=== PATIENT | female | born 1990 | race Hispanic/Latino ===

== ENCOUNTER → 2016-08-18 | Outpatient (CLI) | payer OTHER ==
[~2016-08-18] MED LIST: AMOX250C PO; CODE-54 PO; FERR240T9 PO; Ibuprofen PO; PNV1TABL9 PO
--- NOTE | 2016-08-18 17:38 | Diagnostic Imaging Report ---
INDICATION: Size and dates. OB sonography is performed in the routine fashion with transabdominal views. A single live intrauterine fetus is seen measuring 16 weeks 1 day in size with EDC of 02/01/2017. There is no prior study during this for comparison. Placenta is anterior and somewhat low lying. This may change later in the , suggest follow-up. The tip of the placenta is about 1.4 cm from the internal os at this time. Cervical length is 3.8 cm. heart rate is 153 beats per minute. IMPRESSION: Single live intrauterine measuring 16 weeks 1 day in size. Placenta is anterior and low lying, this may change later in the . Recommend follow-up sonography later in the , for survey as well. Report was faxed to the office of Dr. Helene Benton at 5:52 p.m., by [email or web address] (for STEVE). Dictated by: Dictated on workstation # [id number]
== END ==
LOC: RAD 15:30
PROVIDERS: ATTEND Family Medicine
DX: Z36 Encounter for antenatal screening of mother (principal); Z3A.16 16 weeks gestation of pregnancy
CPT/HCPCS: 76805

== ENCOUNTER → 2016-09-16 | Outpatient (CLI) | payer OTHER ==
--- NOTE | 2016-09-16 16:59 | Diagnostic Imaging Report ---
INDICATION: Survey. TECHNIQUE: Multiple real-time grayscale images were obtained over the gravid uterus. COMPARISON: None FINDINGS: Cervix is nondilated measuring 4.7 cm in length. No pathological finding at the anatomical survey was revealed however positioning limits spinal assessment. The gestation was in variable position. The placenta is fundal with no abruption or previa and there is a normal volume of amniotic fluid. The measurements are compatible with an age 20 weeks 2 days. IMPRESSION: A 20 weeks 2 days hilton viable IUP with no pathological finding revealed. Position limits spinal assessment. Biometrical measurements are as follows: Biparietal 4.73 cm, age 20 weeks 3 days. Head circumference 16.87 cm, age 19 weeks 4 days. Abdominal circumference 15.84 cm, age 21 weeks 0 days. Femur length 3.1 cm, age 19 weeks 5 days. Sonographic estimate age: 20 weeks 2 days. Sonographic estimated date of delivery: 02/01/2017. Estimated Weight: 344 gm (+/- 50 gm). LMP percentile: 46%. heart rate: 126 beats per minute. number: 1 of 1. Dictated by: Dictated on workstation # [id number]
== END ==
LOC: RAD 16:12
PROVIDERS: ATTEND Family Medicine
DX: Z36 Encounter for antenatal screening of mother (principal); Z3A.08 8 weeks gestation of pregnancy
CPT/HCPCS: 76805

== ENCOUNTER → 2016-11-16 | Outpatient (CLI) | payer OTHER | LOC: LAB 07:23 | PROVIDERS: ATTEND Family Medicine | DX: O99.810 Abnormal glucose complicating pregnancy (principal); Z3A.00 Weeks of gestation of pregnancy not specified | CPT/HCPCS: 36415; 82951; 82952; 82962 ==

== ENCOUNTER → 2017-01-13 | Outpatient (CLI) | payer OTHER ==
--- NOTE | 2017-01-13 17:08 | Diagnostic Imaging Report ---
INDICATION: Assess growth. TECHNIQUE: Multiple real-time grayscale images were obtained over the gravid uterus. COMPARISON: Exam compared to 09/16/2016. FINDINGS: A hilton gestation is in cephalic position. The placenta is anterior with no abruption or previa. The amniotic fluid index is 10.2. The largest vertical pocket measuring 3.9 cm. There is no abruption or previa. The measurements today correlate with an average age of 38 weeks 5 days. Age based upon initial ultrasound would be 37 weeks 2 days. IMPRESSION: Cephalic-positioning hliton viable IUP measures 38 weeks 5 days today, initial ultrasound age is 37 weeks 2 days. Normal ILIANA. No abruption or previa. Biometrical measurements are as follows: Biparietal 9.47 cm, age 38 weeks 5 days. Head circumference 34.11 cm, age 39 weeks 2 days. Abdominal circumference 35.75 cm, age 39 weeks 5 days. Femur length 7.18 cm, age 36 weeks 6 days. Sonographic estimate age: 38 weeks 5 days. Sonographic estimated date of delivery: 01/22/2017. Estimated Weight: 3620 gm (+/- 529 gm). LMP percentile: 91%. heart rate: 123 beats per minute. number: 1 of 1. Dictated by: Dictated on workstation # [id number]
== END ==
LOC: RAD 15:51
PROVIDERS: ATTEND Family Medicine
DX: O24.410 Gestational diabetes mellitus in pregnancy, diet controlled (principal); Z3A.37 37 weeks gestation of pregnancy
CPT/HCPCS: 76816

== ENCOUNTER 2017-01-24 19:00 | Inpatient (IN) | payer OTHER ==
[~2017-01-24] VITALS: Ht 149.9 cm; Wt 70.3 kg
[2017-01-24 19:35] VITALS: BP 109/55
[2017-01-24] MEDS: LACTATED RINGERS 1,000 ML IV SCH (20:00)
[2017-01-24 20:09] LABS: BASOPHILS % (AUTO) 0 % (0-10); EOSINOPHILS # (AUTO) 0.1 10^3/uL (0.0-0.3); EOSINOPHILS % (AUTO) 1 % (0-10); LYMPHOCYTES % (AUTO) 20 % (12-44); MEAN CORPUSCULAR HEMOGLOBIN 29 PG (25-34); MEAN CORPUSCULAR HGB CONC 34 G/DL (32-36); MEAN CORPUSCULAR VOLUME 86 FL (80-99); MEAN PLATELET VOLUME 9.6 FL (7.4-10.4); MONOCYTES # (AUTO) 1.3 X 10^3 (0.0-1.0); MONOCYTES % (AUTO) 14 % (0-12); NEUTROPHILS # (AUTO) 6.3 X 10^3 (1.8-7.8); NEUTROPHILS % (AUTO) 65 % (42-75); PLATELET COUNT 291 10^3/uL (130-400); RED BLOOD COUNT 3.98 10^6/uL (4.35-5.85); RED CELL DISTRIBUTION WIDTH 14.2 % (10.0-14.5); WHITE BLOOD COUNT 9.7 10^3/uL (4.3-11.0)
[2017-01-24] MEDS ORDERED: LACTATED RINGERS 1,000 ML IV SCH (20:27)
[2017-01-24] MEDS: MISOPROSTOL 100 MCG (CYTOTEC) TAB PV SCH (21:46)
[2017-01-24] MEDS ORDERED: CATHETER FLUSH 10 ML SYR IV SCH (22:00)
[2017-01-25] VITALS (51 sets, daily range): BP systolic 89–136; BP diastolic 49–66
[2017-01-25] MEDS: MISOPROSTOL 100 MCG (CYTOTEC) TAB PV SCH (02:20)
[2017-01-25] MEDS ORDERED: fentaNYL INJECTION 100 MCG/2 ML AMP IVP PRN (02:30)
[2017-01-25] MEDS: LACTATED RINGERS 1,000 ML IV SCH ×2 (02:34→08:52)
[2017-01-25] MEDS ORDERED: OXYTOCIN/NORMAL SALINE 500 ML IV SCH ×2 (04:12→12:35)
[2017-01-25] MEDS ORDERED: INFLUENZA TRIvalent 2017-2018 0.5 ML/45 MCG SYR IM ONE (07:00)
[2017-01-25] MEDS ORDERED: SUFENTA 0.6MCG/ML BUPIVA 0.125 100 ML ONE ×2 (08:03→17:00)
--- NOTE | 2017-01-25 08:10 | History & Physical-OB ---
OB - Chief Complaint & HPI Date/Time Date of Admission: Date of Admission: Jan 24, 2017 at 7:01 pm Time Seen by Provider: 07:55 Chief Complaint/History OB-Reason for Admission/Chief: Induction of Labor Hx : 3 Hx Para: 2001 Expected Date of Delivery: Feb 01, 2017 Gestational Age in Weeks: 39 Gestational Age in Days: 0 Indication for induction: medical complication (gestational diabetes, diet- controlled) History of Labs O+, antibody neg, Rubella immune. HIV/HepB/RPR NR. GC/chlamydia neg. GBS neg. Allergies and Home Medications Allergies Coded Allergies: No Known Drug Allergies (Unverified , 09/26/13) Home Medications Pnv Cmb#21/Iron/Folic Acid 1 Each Tablet, 1 EACH PO, (Reported) OB - History Hx of Present Care: Yes Ultrasounds: Normal mid trimester US (initial US with low lying placenta, resolved at follow-up, EFW 3620 at 37 weeks) Obstetrical Complications: Gestational Diabetes Information Induced Hypertension: No Maternal Gestational Diabetes: Yes Hemorrhage: No Obstetrical History Hx : 3 Hx Para: 2 Hx # Term Pregnancies: 2 Hx # Pregnancies: 0 Number of Living Children: 2 Hx Termination: No Hx Multiple Gestation: No Hx Ectopic : No Hx Stillbirth: No Hx Complication: No Hx Induced Hypertens: No Hx Maternal Gestational Diabet: No Hx Hemorrhage: No Delivery History Hx Dystocia: No Hx Forceps Assisted Delivery: No Hx Vacuum Extraction Assisted: No Hx Placenta Abnormality: No Hx Distress: No Hx Large For Gestational Age I: No Hx Small for Gestational Age I: No Hx Section: No Hx Vaginal Delivery Post C-Sec: No Hx Blood Disorders: No Adverse Rxn to Tranfusion: No Patient Past Medical History PMHx: Denies Social History/Family History HIV/AIDS: No Recent Infectious Disease Expo: No Sexually Transmitted Disease: No Alcohol Use: Denies Use Recreational Drug Use: No Smoking Cessation: Never smoker Immunizations Tetanus Booster (TDap): Less than 5yrs (12/14/2016) Rubella: immune RPR/VDRL: Negative GBS Status: Negative HBsAG: Negative OB - Admission Exam Physical Exam Vitals: Vital Signs 01/25/17 01/25/17 04:05 07:00 Temp 97.9 Pulse 81 Resp 18 B/P (MAP) 113/59 (77) O2 Delivery Room Air HEENT: NCAT Cervical Dilatation: 5cm Effacement: 50% Station: -3 Membranes: Ruptured (AROM at 0800) Amniotic Fluid: Clear Heart Rate: 130's Accelerations: Accelerations Present Short Term Variability: Present Wardrobe Technician Variability: Average (6-25) Contractions on Admission: 6-10 Minutes Apart Intensity: Mild Desouza Scoring Tool (Modified) Dilation (cm): 1-2cm (1) Effacement (%): 0-30% (0) Descent/Station: -3 (0) Cervix Consistency: Soft (2) Cervix Position: Posterior (0) Add 1 point for: Each previous vaginal delivery (1) (2) Desouza Score: 5 Labs Laboratory Tests Test 01/24/17 20:00 01/24/17 20:11 Range/Units White Blood Count 9.7 4.3-11.0 10^3/uL Red Blood Count 3.98 L 4.35-5.85 10^6/uL Hemoglobin 11.5 11.5-16.0 G/DL Hematocrit 34 L 35-52 % Mean Corpuscular Volume 86 80-99 FL Mean Corpuscular Hemoglobin 29 25-34 PG Mean Corpuscular Hemoglobin Concent 34 32-36 G/DL Red Cell Distribution Width 14.2 10.0-14.5 % Platelet Count 291 130-400 10^3/uL Mean Platelet Volume 9.6 7.4-10.4 FL Neutrophils (%) (Auto) 65 42-75 % Lymphocytes (%) (Auto) 20 12-44 % Monocytes (%) (Auto) 14 H 0-12 % Eosinophils (%) (Auto) 1 0-10 % Basophils (%) (Auto) 0 0-10 % Neutrophils # (Auto) 6.3 1.8-7.8 X 10^3 Lymphocytes # (Auto) 2.0 1.0-4.0 X 10^3 Monocytes # (Auto) 1.3 H 0.0-1.0 X 10^3 Eosinophils # (Auto) 0.1 0.0-0.3 10^3/uL Basophils # (Auto) 0.0 0.0-0.1 10^3/uL Glucometer 87 70-110 MG/DL OB - Assessment/Plan/Diagnosis Assessment Assessment: induction of labor, other (GDMA1) Plan Plan: Induction Induction Method: per Misoprostol Protocol (Desouza 5 on admit, one dose of cytotec given, started pitocin and AROM this am) Other Plan Blood sugar 87 on admit Copy Copies To 1: NAV VOSS MD, BETHANY N MD Jan 25, 2017 8:10 am
[2017-01-25] MEDS ORDERED: BUPIVACAINE 0.25% 30 ML (SENSORCAINE) VIAL ONE (09:18)
[2017-01-25] MEDS ORDERED: fentaNYL INJECTION 100 MCG/2 ML AMP ONE (09:18)
[2017-01-25] MEDS ORDERED: MINERAL OIL CONCENTRATE 99.9% 15 ML UDC ONE (11:58)
[2017-01-25] MEDS ORDERED: LIDOCAINE/EPI 2% 1:200,00 (XYLOCAINE) 10 ML VIAL ONE (11:58)
[2017-01-25] MEDS ORDERED: MISOPROSTOL 200 MCG (CYTOTEC) TABLET ONE (12:16)
--- NOTE | 2017-01-25 12:28 | OB Labor & Delivery Record ---
Vag Delivery Note Vag Delivery Note Date of Delivery: 01/25/17 Preoperative Diagnosis: Hanane Mejia is a 26 /Para 3 / 2, Gestational Age (wks)39with 0d Postoperative Diagnosis: Same Surgeon: NAV VOSS Anesthesia: epidural Delivery Type: spontaneous vaginal Findings: [] Viable female infant, apgars 9/9, weight pending Lacerations: first degree perineal Intact placenta with 3 vessel cord. No nuchal cord, body cord or shoulder dystocia Cytotec 800 mcg placed for hemorrhage prophylaxis Estimated Blood Loss: 350 ml Complications: None Condition: Stable Description of Procedure: The patient is a G3 now P3 who presented for IOL at 39 weeks due to GDMA1. She was admitted and informed consent was obtained. Her labor course was unremarkable. She progressed to complete dilatation and began to push. She was then set up for delivery. The 's head was delivered atraumatically in the TAYLER position. The shoulders and remainder of the infant's body were then delivered without difficulty. Upon delivery, the head was held below the level of the perineum and the mouth and nares were bulb suctioned. The cord was doubly clamped and cut and the was handed off to the pediatric staff. An intact placenta with 3-vessel cord delivered via Laxmi and there was found to be minimal bleeding.~ Vigorous fundal massage was performed and the fundus was found to be firm. IV oxytocin was given. Examination of the vagina and perineum revealed a first degree perineal laceration repaired in the usual fashion with 3-0 rapide suture. Following the repair, sponge, instrument and needle counts were correct. Mom and baby were both in stable condition in the labor suite. Vitals - Labs Vital Signs - I&O Vital Signs 01/25/17 01/25/17 09:33 10:57 Temp 99.2 Pulse 80 Resp 18 B/P (MAP) 107/57 (74) Pulse Ox 96 O2 Delivery Room Air Labs Laboratory Tests 01/24/17 20:00: White Blood Count 9.7, Red Blood Count 3.98L, Hemoglobin 11.5, Hematocrit 34L, Mean Corpuscular Volume 86, Mean Corpuscular Hemoglobin 29, Mean Corpuscular Hemoglobin Concent 34, Red Cell Distribution Width 14.2, Platelet Count 291, Mean Platelet Volume 9.6, Neutrophils (%) (Auto) 65, Lymphocytes (%) (Auto) 20, Monocytes (%) (Auto) 14H, Eosinophils (%) (Auto) 1, Basophils (%) (Auto) 0, Neutrophils # (Auto) 6.3, Lymphocytes # (Auto) 2.0, Monocytes # (Auto) 1.3H, Eosinophils # (Auto) 0.1, Basophils # (Auto) 0.0 01/24/17 20:11: Glucometer 87 NAV VOSS MD Jan 25, 2017 12:28 pm
[2017-01-25] MEDS ORDERED: MISOPROSTOL 200 MCG (CYTOTEC) TABLET PR ONE (12:30)
[2017-01-25] MEDS ORDERED: MEASLES,MUMPS,RUBELLA 1 EA INJ SQ ONE (12:45)
[2017-01-25] MEDS ORDERED: BENZOCAINE/MENTHOL (DERMOPLAST) 56 ML CAN TP PRN (12:45)
[2017-01-25] MEDS ORDERED: TETANUS,DIPTH,PERTUSS P/F (BOOSTRIX) 0.5 ML VIAL IM ONE (12:45)
[2017-01-25] MEDS ORDERED: WITCH HAZEL(TUCKS) 40 EA JAR TOP PRN (12:45)
[2017-01-25] MEDS ORDERED: LACTATED RINGERS 1,000 ML IV ONE ×2 (13:54)
[2017-01-25] MEDS ORDERED: ONDANSETRON 4 MG/2 ML (SDV) Z0FRAN IV PRN (14:00)
[2017-01-25] MEDS ORDERED: CATHETER FLUSH 10 ML SYR IV SCH (14:00)
[2017-01-25] MEDS ORDERED: NALOXONE 0.4 MG/ML 1 ML (NARCAN) VIAL IV PRN (14:00)
[2017-01-25] MEDS ORDERED: EPIDURAL (SUFENTA 0.6MCG/ML BUPIVA 0.125%) 100 ML BAG EPI PRN (14:00)
[2017-01-25] MEDS: IBUPROFEN 600 MG (MOTRIN) TAB PO SCH ×2 (16:00→22:08)
[2017-01-26 04:33] VITALS: BP 94/51
[2017-01-26] MEDS: IBUPROFEN 600 MG (MOTRIN) TAB PO SCH ×2 (04:33→09:34)
[2017-01-26 06:20] LABS: BASOPHILS % (AUTO) 0 % (0-10); EOSINOPHILS # (AUTO) 0.1 10^3/uL (0.0-0.3); EOSINOPHILS % (AUTO) 1 % (0-10); LYMPHOCYTES # (AUTO) 2.5 X 10^3 (1.0-4.0); LYMPHOCYTES % (AUTO) 22 % (12-44); MEAN CORPUSCULAR HEMOGLOBIN 30 PG (25-34); MEAN CORPUSCULAR HGB CONC 34 G/DL (32-36); MEAN CORPUSCULAR VOLUME 87 FL (80-99); MEAN PLATELET VOLUME 9.4 FL (7.4-10.4); MONOCYTES # (AUTO) 1.4 X 10^3 (0.0-1.0); MONOCYTES % (AUTO) 12 % (0-12); NEUTROPHILS # (AUTO) 7.5 X 10^3 (1.8-7.8); NEUTROPHILS % (AUTO) 65 % (42-75); PLATELET COUNT 237 10^3/uL (130-400); RED CELL DISTRIBUTION WIDTH 14.3 % (10.0-14.5); WHITE BLOOD COUNT 11.5 10^3/uL (4.3-11.0)
[2017-01-26] MEDS ORDERED: PRENATAL VITAMIN 1 EA TAB PO SCH (07:00)
[2017-01-26 09:30] VITALS: BP 101/62
--- NOTE | 2017-01-26 11:26 | Postpartum Progress Note ---
Note Note Day # 1 Subjective: Patient is without complaints. Ambulating, voiding. Tolerating a regular diet without nausea or vomiting. Normal lochia. Pain is well controlled and patient has not taken any oral pain medications at this time. . Patient would like to be discharged later today as long as infant is able to be discharged today. Objective: Physical Exam: General - Alert and oriented, no apparent distress Abdomen - Soft, appropriately tender to palpation, non-distended, fundus firm and post gravid uterus Extremities - no edema, negative Bennie's bilaterally Cardiovascular - Heart RRR without murmurs/rubs/gallops Lungs - CTAB, no cough/wheeze/rhonchi Assessment: post- day #1, status post spontaneous vaginal delivery. Recovering well, hemodynamically stable Acute blood loss anemia Plan: Routine care. Encourage breast feeding. Encourage ambulation. Ferrous sulfate supplementation. Plan for discharge later today if is able to be discharged home. Vitals - Labs Vital Signs - I&O Vital Signs Date Time Temp Pulse Resp B/P (MAP) Pulse Ox O2 Delivery O2 Flow Rate FiO2 01/26/17 09:30 98.1 103 16 101/62 (75) Room Air 01/26/17 04:33 96.9 75 18 94/51 (65) 98 Room Air 01/25/17 20:00 98.8 78 18 109/66 (80) 98 Room Air 01/25/17 16:00 100.0 83 18 103/56 (72) Room Air 01/25/17 13:56 74 18 104/55 (71) Room Air 01/25/17 13:41 75 18 98/52 (67) Room Air 01/25/17 13:26 81 18 103/52 (69) Room Air 01/25/17 13:11 78 18 118/55 (76) Room Air 01/25/17 12:56 78 18 115/55 (75) Room Air 01/25/17 12:41 86 18 111/55 (73) Room Air 01/25/17 12:27 100 18 117/58 (77) Room Air 01/25/17 12:15 99 18 115/56 (75) Room Air 01/25/17 12:00 88 18 117/64 (81) 95 Room Air 01/25/17 11:30 77 18 113/54 (73) 94 Room Air I & O 12/20/17 07:00 Intake Total 3000 ml Balance 3000 ml Labs Laboratory Tests 01/26/17 06:05: White Blood Count 11.5H, Red Blood Count 3.70L, Hemoglobin 10.9L, Hematocrit 32L , Mean Corpuscular Volume 87, Mean Corpuscular Hemoglobin 30, Mean Corpuscular Hemoglobin Concent 34, Red Cell Distribution Width 14.3, Platelet Count 237, Mean Platelet Volume 9.4, Neutrophils (%) (Auto) 65, Lymphocytes (%) (Auto) 22, Monocytes (%) (Auto) 12, Eosinophils (%) (Auto) 1, Basophils (%) (Auto) 0, Neutrophils # (Auto) 7.5, Lymphocytes # (Auto) 2.5, Monocytes # (Auto) 1.4H, Eosinophils # (Auto) 0.1, Basophils # (Auto) 0.0, Glucose Level 68L MARIO ISRAEL DO Jan 26, 2017 11:26
--- NOTE | 2017-01-26 12:36 | Discharge Summary ---
Diagnosis/Chief Complaint Date of Admission Jan 24, 2017 at 19:01 Date of Discharge 01/25/17 Admission Diagnosis Admission Diagnosis Term A1GDM Discharge Diagnosis Term - Delivered Spontaneous Vaginal Delivery First Degree Perineal Laceration Mother State Blood Loss Anemia/Physiologic Anemia of Chief Complaint/HPI Chief Complaint/HPI 26 year old G3 now P3003 admitted 01/24/17 for induction of labor of term complicated by A1GDM. Patient progressed well with her induction and delivered a viable female weighing 3685 grams over a first degree perineal laceration that was repaired in the normal fashion. She has had an uncomplicated course, and today expresses desire for early discharge later today, after the baby is > 24 hours old, and the PKU and bili levels on the have been collected. She has not required anything for pain, and reports that she is ambulating without difficulty, not having significant pain, and would be more comfortable at home. Discharge Summary-Simple/Stand Procedures Induction of Labor Repair of First Degree Perineal Laceration Spontaneous Vaginal Delivery Discharge Physical Examination Allergies: Coded Allergies: No Known Drug Allergies (Unverified , 09/26/13) Vitals & I&Os Vital Sign - Last 12Hours Date Time Temp Pulse Resp B/P (MAP) Pulse Ox O2 Delivery O2 Flow Rate FiO2 01/26/17 09:30 98.1 103 16 101/62 (75) Room Air 01/26/17 04:33 98 Intake and Output 01/26/17 00:00 Intake Total 1000 ml Balance 1000 ml General Appearance: Alert, Oriented X3, Cooperative, No Acute Distress HEENT: Atraumatic, PERRLA, EOMI, Mucous Memb Moist/[place] Respiratory: Clear to Auscultation, Normal Air Movement Cardiovascular: Regular Rate, Normal S1, Normal S2, No Murmurs Abdominal: Normal Bowel Sounds, Soft, No Tenderness, No Hepatosplenomegaly Extremities: No Clubbing, No Cyanosis, Normal Pulses, No Tenderness/Swelling Skin: No Rashes, No Significant Lesion Neuro: Normal Gait, Normal Speech, Strength at 5/5 X4 Ext, Normal Tone, Sensation Intact, Cranial Nerves 3-12 NL Psych/Mental Status: Mental Status NL, Mood NL Hospital Course See final discharge diagnosis. Labs Laboratory Tests Test 01/24/17 20:00 01/24/17 20:11 01/26/17 06:05 Range/Units White Blood Count 9.7 11.5 H 4.3-11.0 10^3/uL Red Blood Count 3.98 L 3.70 L 4.35-5.85 10^6/uL Hemoglobin 11.5 10.9 L 11.5-16.0 G/DL Hematocrit 34 L 32 L 35-52 % Mean Corpuscular Volume 86 87 80-99 FL Mean Corpuscular Hemoglobin 29 30 25-34 PG Mean Corpuscular Hemoglobin Concent 34 34 32-36 G/DL Red Cell Distribution Width 14.2 14.3 10.0-14.5 % Platelet Count 291 237 130-400 10^3/uL Mean Platelet Volume 9.6 9.4 7.4-10.4 FL Neutrophils (%) (Auto) 65 65 42-75 % Lymphocytes (%) (Auto) 20 22 12-44 % Monocytes (%) (Auto) 14 H 12 0-12 % Eosinophils (%) (Auto) 1 1 0-10 % Basophils (%) (Auto) 0 0 0-10 % Neutrophils # (Auto) 6.3 7.5 1.8-7.8 X 10^3 Lymphocytes # (Auto) 2.0 2.5 1.0-4.0 X 10^3 Monocytes # (Auto) 1.3 H 1.4 H 0.0-1.0 X 10^3 Eosinophils # (Auto) 0.1 0.1 0.0-0.3 10^3/uL Basophils # (Auto) 0.0 0.0 0.0-0.1 10^3/uL Glucometer 87 70-110 MG/DL Glucose Level 68 L 70-105 MG/DL Discussion & Recommendations Given that patient is stable, there is no reason that she can't be discharged to home later today. Plan for routine follow up with Dr. Benton in the office for routine care. Discharge Condition at discharge Stable Instructions to patient/family Please see electronic discharge instructions given to patient. Discharge Medications Reviewed and agree with Discharge Medication list on patient's Discharge Instruction sheet Clinical Quality Measures DVT/VTE Risk/Contraindication: Risk Factor Score Per Nursin RFS Level Per Nursing on Admit: 1=Low/No VTE PPX MARIO ISRAEL DO Jan 26, 2017 12:36
[2017-01-26] MEDS ORDERED: IBUP-1773 PO (12:40)
--- NOTE | 2017-01-26 12:45 | Discharge Instructions ---
Discharge Inst-Women's Serv Depart Medications New, Converted or Re-Newed RX: Transmitted to Pharmacy Final Diagnosis Spontaneous Vaginal Delivery Mother New Medications: Ibuprofen (Ibuprofen) 600 Mg Tablet 600 MG PO Q6H PRN for pain or cramping for 14 Days, #45 TAB 0 Refills Continued Medications: Pnv Cmb#21/Iron/Folic Acid ( Complete [place]) 1 Each Tablet 1 EACH PO, TAB Follow Up/Instructions Goal/Follow Up: Routine follow up with Dr. Benton in 6 weeks Activity Activity: Activity as Tolerated Driving Instructions: You May Drive NO SMOKING: NO SMOKING Nothing Inside Vagina: No Douching, No [place], No Tampons Diet Discharge Diet: No Restrictions Return to The Hospital For: Temp >101, foul discharge or odor, heavy vaginal bleeding that saturates more than 1 pad per hour for two hours in a row, clots larger than the size of an orange, severe pain that is uncontrolled by medications, nausea or vomiting that makes you unable to keep down medication, severe shortness of breath or chest pressure, headache/visual changes or epigastric pain unrelieved by medications, or if directed to return to hospital by metal bonder provider Symptoms to Report to : Bleeding Excessive, Eyesight Changes, Fever Over 101 Degrees F, Pain/Pressure in Chest, Heart Beat Irreg/Pounding, Pain/Pressure in Jaw, Vaginal Bleeding Increase, Lightheadedness, Pain/Pressure in Shoulder, Vaginal Discharge Foul, Memory Changes Suddenly, Questions/Concerns, Dizziness/ Fainting, Nausea/Vomiting, Shortness of Breath For Any Problems or Questions: Contact Your Physician Copies To 1: NAV BENTON MD, MARGARET E DO Jan 26, 2017 12:45
--- NOTE | 2017-01-26 14:23 | Anesthesia-Regional Post-Op ---
Regional Patient Condition Mental Status: Alert, Oriented x3 Circulation: Same as Pre-Op Headache: Absent Sensation: Full Recovery Motor Block: Absent Post Op Complications Complications None Follow Up Care/Instructions Patient Instructions None needed. Anesthesia/Patient Condition Patient is doing well, no complaints, stable vital signs, no apparent adverse anesthesia problems. No complications reported per nursing. KATE MADRID CRNA Jan 26, 2017 14:23
[2017-01-26 15:55] VITALS: BP 100/58
== END 2017-01-26 17:07 | disposition home or self-care (01) | DRG 775 ==
LOC: LDRP 19:01
PROVIDERS: ADMIT Family Medicine; ATTEND Family Medicine
PROC: 10E0XZZ Delivery of Products of Conception, External Approach (ICD-10-PCS; principal; 2017-01-25)
PROC: 0HQ9XZZ Repair Perineum Skin, External Approach (ICD-10-PCS; 2017-01-25)
DX: O24.410 Gestational diabetes mellitus in pregnancy, diet controlled (principal); O70.0 First degree perineal laceration during delivery; O99.03 Anemia complicating the puerperium; D64.9 Anemia, unspecified; Z3A.39 39 weeks gestation of pregnancy; Z37.0 Single live birth
CPT/HCPCS: 36415; 82947; 82962; 85025; 86850; 86900; 86901

== ENCOUNTER 2019-06-27 06:36 | Emergency (ER) | payer BC, MEDICAID, OTHER ==
[~2019-06-27] VITALS: Ht 152 cm; Wt 64.0 kg
[~2019-06-27 06:36] MED LIST changes: +IBUP-1773 PO
--- NOTE | 2019-06-27 08:22 | Diagnostic Imaging Report ---
HISTORY: Right ankle pain after twisting injury this morning. COMPARISON: None TECHNIQUE: 3 views of the right ankle FINDINGS: No acute fracture or dislocation is seen in the right ankle. Alignment appears normal. Joint spaces are preserved. The ankle mortise is symmetric and the talar dome is intact. There is moderate lateral soft tissue swelling. IMPRESSION: 1. No acute osseous abnormality is seen in the right ankle. There is moderate lateral soft tissue swelling. Dictated by: Dictated on workstation # [id number]
--- NOTE | 2019-06-27 08:34 | ED Lower Extremity ---
General Chief Complaint: Lower Extremity Stated Complaint: RT ANKLE INJURY Nursing Triage Note: PT TO ROOM 6 PER W/C STATES TWISTED R ANKLE GOING DOWN STEP FELT POP, HAS PAIN AND SWELLING AT SITE. DENIES ANY OTHER INJURIES. ICE APPLIED TO AREA Nursing Sepsis Screen: No Definite Risk Source: patient Exam Limitations: no limitations History of Present Illness Date Seen by Provider: June 27, 2019 Time Seen by Provider: 07:24 Initial Comments This 28-year-old woman presents to the emergency room with pain and swelling to the right lateral malleolus after rolling her ankle on stairs this morning. She has taken no pain medications. She is not able to bear weight well. Allergies and Home Medications Allergies Coded Allergies: No Known Drug Allergies (Unverified , 09/26/13) Home Medications No Active Prescriptions or Reported Meds Patient Home Medication List Home Medication List Reviewed: Yes Review of Systems Constitutional: no symptoms reported EENTM: no symptoms reported Respiratory: no symptoms reported Cardiovascular: no symptoms reported Gastrointestinal: no symptoms reported Genitourinary: no symptoms reported : No Musculoskeletal: see HPI Skin: no symptoms reported Psychiatric/Neurological: No Symptoms Reported Past Aklbpre-Focuzz-Swgaku Hx Patient Social History Alcohol Use: Denies Use Recreational Drug Use: No Smoking Status: Never a Smoker Recent Foreign Travel: No Contact w/Someone Who Travel: No Recent Infectious Disease Expo: No Recent Hopitalizations: No Physical Abuse: No Sexual Abuse: No Immunizations Up To Date Tetanus Booster (TDap): Less than 5yrs Seasonal Allergies Seasonal Allergies: No Past Medical History Surgeries: No Respiratory: No Cardiac: No Neurological: No : No Last Menstrual Period: May 14, 2019 Reproductive Disorders: No Sexually Transmitted Disease: No HIV/AIDS: No Genitourinary: No Gastrointestinal: No Musculoskeletal: No Endocrine: No HEENT: No Cancer: No Psychosocial: No Integumentary: No Blood Disorders: No Adverse Reaction/Blood Tranf: No Family Medical History Patient reports no known family medical history. Physical Exam Vital Signs Vital Signs - First Documented 06/27/19 07:15 Temp 36.1 Pulse 103 Resp 20 B/P (MAP) 112/86 (95) Pulse Ox 100 Capillary Refill : Less Than 3 Seconds Height, Weight, BMI Height: 4'11.00" Weight: 155lbs. 0.0oz. [id number]; 27.00 BMI Method: General Appearance: WD/WN, no apparent distress HEENT: normal ENT inspection Neck: normal inspection Cardiovascular: regular rate, rhythm, no edema, no murmur Respiratory: lungs clear, normal breath sounds, no respiratory distress Ankles: right ankle bone tenderness, right ankle ecchymosis, right ankle limited range of motion, right ankle swelling Feet: right foot non-tender, right foot normal inspection, right foot normal range of motion, right foot no evidence of injury Neurologic/Tendon: normal sensation, normal motor functions, normal tendon functions Neurologic/Psychiatric: diagrammer II-XII nml as tested, no motor/sensory deficits, alert, normal mood/affect, oriented x 3 Skin: warm/dry, ecchymosis Progress/Results/Core Measures Results/Orders My Orders Orders - GIO DIAMOND MD Ankle, Right, 3 Views (06/27/19 07:24) Crutches (06/27/19 08:35) Vital Signs/I&O 06/27/19 06/27/19 07:15 08:48 Temp 36.1 36.1 Pulse 103 103 Resp 20 20 B/P (MAP) 112/86 (95) 112/86 (95) Pulse Ox 100 100 Blood Pressure Mean: 95 Progress Progress Note : Progress Note X-rays were negative for fracture. Patient was fitted with Huber bandage and crutches. Diagnostic Imaging Diagonstic Imaging: Xray Plain Films/CT/US/NM/MRI: chest Comments Chest x-ray viewed by me and report reviewed. See report below: NAME: JANICE ROACH [facility] REC#: [id number] PT STATUS: REG ER : 1990 PHYSICIAN: GIO DIAMOND MD ADMIT DATE: 06/27/19/ER Draft Date of Exam:06/27/19 ANKLE, RIGHT, 3 VIEWS HISTORY: Right ankle pain after twisting injury this morning. COMPARISON: None TECHNIQUE: 3 views of the right ankle FINDINGS: No acute fracture or dislocation is seen in the right ankle. Alignment appears normal. Joint spaces are preserved. The ankle mortise is symmetric and the talar dome is intact. There is moderate lateral soft tissue swelling. IMPRESSION: 1. No acute osseous abnormality is seen in the right ankle. There is moderate lateral soft tissue swelling. Dictated on workstation # [id number] Dict: 06/27/19 0817 Trans: 06/27/19 0821 [facility] [id number] Interpreted by: JUNIOR DONIS MD Departure Impression Primary Impression: Right ankle sprain Qualified Codes: S93.401A - Sprain of unspecified ligament of right ankle, initial encounter Disposition: 01 HOME, SELF-CARE Condition: Stable Departure-Patient Inst. Decision time for Depature: 08:34 Referrals: NAV VOSS MD (PCP/Family) Primary Care Physician Patient Instructions: Ankle Sprain, How to Use Crutches Add. Discharge Instructions: For pain you may take ibuprofen up to 600 mg every 6 hours as needed and Tylenol (acetaminophen) up to 1000 mg every 6 hours as needed. Elevation and 20 minute intervals of icing should be helpful in reducing pain and swelling. Compressive wrapping with an Huber bandage may also reduce swelling and increased support. Use crutches as needed and gradually advance level of activity as pain allows. Wear an ankle brace whenever active for the next 6 weeks. Contact your doctor or return to care if you have any further problems or concerns. All discharge instructions reviewed with patient and/or family. Voiced understanding. Scripts No Active Prescriptions or Reported Meds Work/School Note: Work Release Form Date Seen in the Emergency Department: June 27, 2019 Return to Work: June 28, 2019 Other Restrictions Listed Below: May need to use crutches and intermittently elevate right foot for 6 weeks. Restrictions: Wear ankle brace at work for 6 weeks. GIO DIAMOND MD June 27, 2019 08:34
[2019-06-27 08:48] VITALS: BP 112/86
== END 2019-06-27 08:53 | disposition home or self-care (01) ==
LOC: EDUNIT# 06:36 → ER 06:39
DX: S93.401A Sprain of unspecified ligament of right ankle, initial encounter (principal); X50.1XXA Overexertion from prolonged static or awkward postures, initial encounter
CPT/HCPCS: 73610

== ENCOUNTER 2022-05-18 06:05 | Inpatient (IN) | payer BC, MEDICAID ==
[2022-05-18] VITALS (70 sets, daily range): BP systolic 91–122; BP diastolic 50–63
[~2022-05-18] VITALS: Ht 149.9 cm; Wt 75.3 kg
[2022-05-18] MEDS ORDERED: MINERAL OIL 30 ML UDC TOP PRN (06:45)
[2022-05-18] MEDS ORDERED: LACTATED RINGERS 1,000 ML IV SCH ×2 (06:45→12:45)
[2022-05-18] MEDS ORDERED: OXYTOCIN PRE-MIX DRIP 500 ML IV SCH ×2 (06:45→20:45)
[2022-05-18] MEDS ORDERED: AMPICILLIN FOR IV USE 2,000 MG in NS (IVPB) 50 ML IV SCH ×2 (06:45→13:05)
[2022-05-18 06:47] LABS: BASOPHILS % (AUTO) 0 % (0-10); EOSINOPHILS # (AUTO) 0.1 10^3/uL (0.0-0.3); EOSINOPHILS % (AUTO) 1 % (0-10); HEMATOCRIT 38 % (35-52); HEMOGLOBIN 12.9 g/dL (11.5-16.0); LYMPHOCYTES # (AUTO) 1.9 10^3/uL (1.0-4.0); LYMPHOCYTES % (AUTO) 24 % (12-44); MEAN CORPUSCULAR HEMOGLOBIN 30 pg (25-34); MEAN CORPUSCULAR HGB CONC 34 g/dL (32-36); MEAN CORPUSCULAR VOLUME 90 fL (80-99); MEAN PLATELET VOLUME 9.5 fL (9.0-12.2); MONOCYTES # (AUTO) 0.9 10^3/uL (0.0-1.0); MONOCYTES % (AUTO) 12 % (0-12); NEUTROPHILS # (AUTO) 4.8 10^3/uL (1.8-7.8); NEUTROPHILS % (AUTO) 62 % (42-75); PLATELET COUNT 266 10^3/uL (130-400); WHITE BLOOD COUNT 7.8 10^3/uL (4.3-11.0)
--- NOTE | 2022-05-18 07:22 | History & Physical-OB/GYN ---
DANA HERNANDEZ 05/18/22 0722: OB - Chief Complaint & HPI Date/Time Date of Admission: Date of Admission: May 18, 2022 at 06:05 Date seen by a Provider: May 18, 2022 Time Seen by a Provider: 08:00 Chief Complaint/History OB-Reason for Admission/Chief: Induction of Labor Hx : 4 Hx Para: 3 Expected Date of Delivery: May 27, 2022 Gestational Age in Weeks: 38 Gestational Age in Days: 5 Indication for induction: medical complication (GDMA2) History of Labs O+, Ab neg GBS + RI HepB sAg NR Hep C NR RPR NR Trichomonas neg BV neg Other Patient is a 31 year old who presents for IOL due to GDMA2. Patient is GBS+. Patient has received routine care and denies any complications throughout her other than GDM. Patient was taking metformin 1000mg BID PO for management along with dietary modifications. On the patient's last BPP on 05/10, mild bilateral renal pelviectasis was noted. On 05/10 the patient's SVE was 1/0/-3 with a Desouza score of 6. SVE to be conducted this morning to determine whether or not cervical rippening is advised. Patient is having a male , d oes not desire circumcision. Plans to breast feed. Allergies and Home Medications Allergies Coded Allergies: No Known Drug Allergies (Unverified , 09/26/13) Patient Home Medication List Home Medication List Reviewed: Yes No Active Prescriptions or Reported Meds OB - History Hx of Present Care: Yes Ultrasounds: Normal mid trimester US Obstetrical Complications: Gestational Diabetes Medical Complications: None Information Induced Hypertension: No Maternal Gestational Diabetes: Yes Hemorrhage: No Obstetrical History Hx : 4 Hx Para: 3 Hx # Term Pregnancies: 3 Hx # Pregnancies: 0 Number of Living Children: 3 Hx Termination: No Hx Multiple Gestation: No Hx Stillbirth: No Hx Complication: No Hx Induced Hypertens: No Hx Maternal Gestational Diabet: No Hx Hemorrhage: No Delivery History Hx Dystocia: No Hx Vacuum Extraction Assisted: No Hx Large For Gestational Age I: No Hx Small for Gestational Age I: No Hx Section: No Hx Vaginal Delivery Post C-Sec: No Hx Blood Disorders: No Adverse Rxn to Tranfusion: No Patient Past Medical History PMHx: Denies Denies HTN and asthma Social History/Family History Alcohol Use: Denies Use Recreational Drug Use: No Smoking Cessation: Never smoker Immunizations Influenza Vaccine Up-to-Date: No; Not Current Tetanus Booster (TDap): Less than 5yrs Rubella: immune RPR/VDRL: Negative GBS Status: Positive HBsAG: Negative OB - Admission Exam Physical Exam HEENT: PERRLA Heart: Rhythm Normal Lungs: Clear Abdomen: Gravid Extremities: Normal Membranes: Intact Heart Rate: 130's Accelerations: Accelerations Present Decelerations: No Decelerations Chief School Finance Officer Variability: Average (6-25) Contractions on Admission: None Desouza Scoring Tool (Modified) Dilation (cm): 3-4cm (2) Effacement (%): 0-30% (0) Descent/Station: -3 (0) Cervix Consistency: Firm (0) Labs Laboratory Tests Test 05/18/22 06:30 Range/Units White Blood Count 7.8 4.3-11.0 10^3/uL Red Blood Count 4.24 3.80-5.11 10^6/uL Hemoglobin 12.9 11.5-16.0 g/dL Hematocrit 38 35-52 % Mean Corpuscular Volume 90 80-99 fL Mean Corpuscular Hemoglobin 30 25-34 pg Mean Corpuscular Hemoglobin Concent 34 32-36 g/dL Red Cell Distribution Width 14.5 10.0-14.5 % Platelet Count 266 130-400 10^3/uL Mean Platelet Volume 9.5 9.0-12.2 fL Immature Granulocyte % (Auto) 2 % Neutrophils (%) (Auto) 62 42-75 % Lymphocytes (%) (Auto) 24 12-44 % Monocytes (%) (Auto) 12 0-12 % Eosinophils (%) (Auto) 1 0-10 % Basophils (%) (Auto) 0 0-10 % Neutrophils # (Auto) 4.8 1.8-7.8 10^3/uL Lymphocytes # (Auto) 1.9 1.0-4.0 10^3/uL Monocytes # (Auto) 0.9 0.0-1.0 10^3/uL Eosinophils # (Auto) 0.1 0.0-0.3 10^3/uL Basophils # (Auto) 0.0 0.0-0.1 10^3/uL Immature Granulocyte # (Auto) 0.1 0.0-0.1 10^3/uL Glucose Level 80 70-105 MG/DL OB - Assessment/Plan/Diagnosis Assessment Assessment: group B positive strep, induction of labor Admission Dx 31 year old who presents for IOL due to GDMA2. Patient is GBS+. Admission Status: Inpatient Order (span 2 midnights) Reason for Inpatient Admission: IOL for GDMA2 Plan Plan: Induction Reason for Induction: GDMA2 Problems: (1) Gestational diabetes mellitus, class A2 Assessment & Plan: -IOL with pitocin per protocol -Monitor blood glucose, was 80 this AM. Continue with clear liquid diet. Consider adjusting fluids to LR D5. (2) Positive GBS test Assessment & Plan: Ampicillin 1000mg Q4H IV NAV VOSS MD 05/18/22 1233: Allergies and Home Medications Allergies Coded Allergies: No Known Drug Allergies (Unverified , 09/26/13) Patient Home Medication List No Active Prescriptions or Reported Meds OB - Admission Exam Physical Exam Abdomen: Non tender Extremities: Normal Station: Ballotable Membranes: Intact Heart Rate: 140's Accelerations: Accelerations Present Decelerations: No Decelerations Chief School Finance Officer Variability: Average (6-25) Contractions on Admission: 6-10 Minutes Apart Intensity: Mild Desouza Scoring Tool (Modified) Dilation (cm): 3-4cm (2) Effacement (%): 0-30% (0) Descent/Station: -3 (0) Cervix Consistency: Soft (2) Cervix Position: Middle/Mid-Position (1) Add 1 point for: Each previous vaginal delivery (1) (3) Desouza Score: 8 OB - Assessment/Plan/Diagnosis Plan Problems: (1) Gestational diabetes mellitus, class A2 Assessment & Plan: -IOL with pitocin per protocol -Monitor blood glucose, was 80 this AM. Continue with clear liquid diet. Consider adjusting fluids to LR D5 if glucose trends down. (2) Positive GBS test Assessment & Plan: Ampicillin 1000mg Q4H IV Supervisory-Addendum Brief Verification & Attestation Participated in pt care: history, MDM, physical Personally performed: exam, history, MDM, supervision of care Care discussed with: Medical Student Procedures: n/a I personally have seen and evaluated the patient and performed my own physical exam, see my documentation of exam and Desouza score and FHTs at the time of my exam which differ from when evaluated by student. I directed the plan of care. DANA HERNANDEZ May 18, 2022 07:22 NAV VOSS MD May 18, 2022 12:33
[2022-05-18] MEDS: AMPICILLIN FOR IV USE 1,000 MG in NS (IVPB) 50 ML IV SCH ×3 (11:43→19:17)
[2022-05-18] MEDS ORDERED: fentaNYL 2 mcg/ml BUPIVA 0.125 100 ML ONE (12:54)
[2022-05-18] MEDS ORDERED: D5 LR IV SOLUTION 1,000 ML IV SCH (13:15)
[2022-05-18] MEDS ORDERED: BUPIVACAINE 0.25% 10 ML (SENSORCAINE) VIAL ONE (13:29)
[2022-05-18] MEDS ORDERED: fentaNYL INJ 100 MCG/2 ML AMP ONE (13:29)
[2022-05-18] MEDS ORDERED: CATHETER FLUSH 10 ML SYR IV SCH ×2 (14:00→22:00)
[2022-05-18] MEDS ORDERED: NALOXONE 0.4 MG/ML 1 ML (NARCAN) VIAL IV PRN ×2 (14:30→14:45)
[2022-05-18] MEDS ORDERED: ONDANSETRON 4 MG/2 ML (SDV) Z0FRAN IV PRN ×2 (14:30→14:45)
[2022-05-18] MEDS ORDERED: fentaNYL 2 mcg/ml BUPIVA 0.125 100 ML EPI SCH ×2 (14:30→14:45)
[2022-05-18] MEDS ORDERED: LACTATED RINGERS 1,000 ML IV ONE ×4 (14:30→14:45)
[2022-05-18] MEDS ORDERED: fentaNYL INJ 100 MCG/2 ML AMP INJ ONE ×2 (14:30→14:45)
--- NOTE | 2022-05-18 16:26 | Labor Progress Note ---
DANA HERNANDEZ 05/18/22 1626: Labor Progress Note Labor Progress Note Date Seen by Provider: May 18, 2022 Time Seen by Provider: 16:15 Subjective: Patient reports she is comfortable. AROM at 16:16. Clear fluid. Objective: Cervical exam: -5/25%/-3 Consistency: firm Position: anterior Presentation: vertex, head well-applied heart tones: 140s beats per minute, moderate variability, accelerations present, no decelerations, reactive Cat. I Tocometer: 3-4 ctx/10 minutes Assessment/Plan: Hanane Mejia is a 31 y/o , 38.5 wga, IOL with pitocin due to GDMA2. CEFM/TOCO Continue pitocin, currently at 18 Anesthesia: epidural Anticipate vaginal delivery. Vitals - Labs Vital Signs - I&O Vital Signs Date Time Temp Pulse Resp B/P (MAP) Pulse Ox O2 Delivery O2 Flow Rate FiO2 05/18/22 11:41 36.5 Room Air 05/18/22 11:28 88 91/50 (64) Room Air 05/18/22 11:13 81 101/51 (68) Room Air 05/18/22 11:00 90 99/50 (66) Room Air 05/18/22 10:44 84 101/52 (68) Room Air 05/18/22 10:28 85 107/55 (72) Room Air 05/18/22 10:12 90 101/52 (68) Room Air 05/18/22 09:59 85 98/51 (67) Room Air 05/18/22 09:44 85 101/54 (70) Room Air 05/18/22 09:29 93 109/56 (73) Room Air 05/18/22 09:13 92 103/56 (72) Room Air 05/18/22 08:58 84 104/54 (71) Room Air 05/18/22 08:43 81 119/59 (79) Room Air 05/18/22 08:29 86 109/56 (73) Room Air 05/18/22 07:22 36.7 85 20 97 Room Air 05/18/22 07:21 36.7 81 18 110/62 (78) 97 Room Air Labs Laboratory Tests 05/18/22 06:30: White Blood Count 7.8, Red Blood Count 4.24, Hemoglobin 12.9, Hematocrit 38, Batool n Corpuscular Volume 90, Mean Corpuscular Hemoglobin 30, Mean Corpuscular Hemoglobin Concent 34, Red Cell Distribution Width 14.5, Platelet Count 266, Mean Platelet Volume 9.5, Immature Granulocyte % (Auto) 2, Neutrophils (%) (Auto) 62, Lymphocytes (%) (Auto) 24, Monocytes (%) (Auto) 12, Eosinophils (%) (Auto) 1, Basophils (%) (Auto) 0, Neutrophils # (Auto) 4.8, Lymphocytes # (Auto) 1.9, Monocytes # (Auto) 0.9, Eosinophils # (Auto) 0.1, Basophils # (Auto) 0.0, Immature Granulocyte # (Auto) 0.1, Glucose Level 80 05/18/22 11:01: Glucometer 71 05/18/22 12:44: Glucometer 69L 05/18/22 13:51: Glucometer 84 05/18/22 14:53: Glucometer 91 05/18/22 16:04: Glucometer 81 NAV VOSS MD 05/18/22 2140: Labor Progress Note Labor Progress Note Time Seen by Provider: 16:15 Supervisory-Addendum Brief Supervisory Addendum I personally have seen and evaluated the patient and performed the physical exam and the AROM. Agree with student documentation except cervix was soft, not firm. I directed the plan of care as documented by the medical student. DANA HERNANDEZ May 18, 2022 16:26 NAV VOSS MD May 18, 2022 21:40
[2022-05-18] MEDS ORDERED: LIDOCAINE 1% INJ 10 ML VIAL ONE (20:00)
[2022-05-18] MEDS ORDERED: WITCH HAZEL(TUCKS) 40 EA JAR TOP PRN (20:45)
[2022-05-18] MEDS ORDERED: BENZOCAINE/MENTHOL (DERMOPLAST) 56 ML CAN TP PRN (20:45)
[2022-05-18] MEDS ORDERED: IBUPROFEN 600 MG (MOTRIN) TAB PO PRN (20:45)
--- NOTE | 2022-05-18 20:52 | OB Labor & Delivery Record ---
DANA HERNANDEZ 05/18/222051: Vag Delivery Note Vag Delivery Note Date of Delivery: 05/18/22 Preoperative Diagnosis: Hanane Mejia is a 31 year old G4 now P4004, GA 38.5. GBS+. IOL with pitocin due to GDMA2. Postoperative Diagnosis: Same Surgeon: Dr. Voss Riprap Man: Dana Hernandez, MS4 Anesthesia: Epidural Delivery Type: Findings: Viable male infant, apgars 8, 9, weight 7lbs 10oz Lacerations: minor bilateral labial abrasions Intact placenta with 3 vessel cord. No nuchal cord, body cord or shoulder dystocia Estimated Blood Loss: 300 ml Complications: None Condition: Stable Description of Procedure: The patient is a 31 year old female G4 now P4004 at 38.5 wga who presented for IOL with pitocin for GDMA2. GBS+. She was admitted and informed consent was obtained. Her labor course was unremarkable. AROM at 16:16, fluid was clear. She progressed to complete dilatation and began to push. She was then set up for delivery. The infant's head was delivered atraumatically in the ANGELES position. The shoulders and remainder of the 's body were then delivered without difficulty. Upon delivery, the was vigorous and placed on maternal chest and the mouth and nares were bulb suctioned. After a delay cord was doubly clamped and cut and the remained on maternal chest. An intact placenta with 3-vessel cord delivered via Laxmi and there was found to be minimal bleeding.~ Vigorous fundal massage was performed and the fundus was found to be firm. IV oxytocin was given. Examination of the vagina and perineum revealed a minor bilateral labial abrasions, not repairs required. Sponge, instrument and needle counts were correct. Mom and baby were both in stable condition in the labor suite. Vitals - Labs Vital Signs - I&O Vital Signs Date Time Temp Pulse Resp B/P (MAP) Pulse Ox O2 Delivery O2 Flow Rate FiO2 05/18/22 19:17 36.9 84 20 116/60 (78) Room Air 05/18/22 19:01 90 104/55 (71) Room Air 05/18/22 18:48 82 108/58 (75) Room Air 05/18/22 18:32 83 112/55 (74) Room Air 05/18/22 18:16 36.8 77 106/51 (69) Room Air 05/18/22 18:02 78 111/57 (75) Room Air 05/18/22 17:46 78 112/60 (77) Room Air 05/18/22 17:31 75 107/55 (72) Room Air 05/18/22 17:17 82 108/56 (73) Room Air 05/18/22 17:01 77 107/57 (74) Room Air 05/18/22 16:46 78 112/57 (75) Room Air 05/18/22 16:32 78 114/59 (77) Room Air 05/18/22 16:18 86 109/62 (78) Room Air 05/18/22 16:02 79 112/57 (75) Room Air 05/18/22 15:46 76 109/56 (73) Room Air 05/18/22 15:31 36.8 83 111/57 (75) 98 Room Air 05/18/22 15:18 76 106/58 (74) 97 Room Air 05/18/22 15:00 85 111/59 (76) 98 Room Air 05/18/22 14:55 84 107/62 (77) 98 Room Air 05/18/22 14:50 88 115/62 (79) 98 Room Air 05/18/22 14:46 78 111/63 (79) 97 Room Air 05/18/22 14:41 82 113/61 (78) 97 Room Air 05/18/22 14:37 78 112/58 (76) 96 Room Air 05/18/22 14:32 81 107/58 (74) 93 Room Air 05/18/22 14:26 87 115/58 (77) 97 Room Air 05/18/22 14:20 85 110/59 (76) 98 Room Air 05/18/22 14:17 88 110/60 (77) 97 Room Air 05/18/22 14:13 81 107/59 (75) 98 Room Air 05/18/22 14:07 86 107/53 (71) 97 Room Air 05/18/22 13:59 85 102/57 (72) 97 Room Air 05/18/22 13:57 95 107/58 (74) 98 Room Air 05/18/22 13:54 89 102/55 (71) 98 Room Air 05/18/22 13:51 87 102/59 (73) 98 Room Air 05/18/22 13:48 86 102/58 (73) 97 Room Air 05/18/22 13:44 86 104/57 (73) 99 Room Air 05/18/22 13:39 81 103/51 (68) 97 Room Air 05/18/22 13:35 88 114/58 (76) 98 Room Air 05/18/22 13:32 97 114/57 (76) 98 Room Air 05/18/22 13:29 89 115/55 (75) 98 Room Air 05/18/22 13:28 89 115/59 (77) Room Air 05/18/22 12:14 89 104/56 (72) Room Air 05/18/22 11:59 86 108/59 (75) Room Air 05/18/22 11:44 83 105/54 (71) Room Air 05/18/22 11:41 36.5 Room Air 05/18/22 11:28 88 91/50 (64) Room Air 05/18/22 11:13 81 101/51 (68) Room Air 05/18/22 11:00 90 99/50 (66) Room Air 05/18/22 10:44 84 101/52 (68) Room Air 05/18/22 10:28 85 107/55 (72) Room Air 05/18/22 10:12 90 101/52 (68) Room Air 05/18/22 09:59 85 98/51 (67) Room Air 05/18/22 09:44 85 101/54 (70) Room Air 05/18/22 09:29 93 109/56 (73) Room Air 05/18/22 09:13 92 103/56 (72) Room Air 05/18/22 08:58 84 104/54 (71) Room Air 05/18/22 08:43 81 119/59 (79) Room Air 05/18/22 08:29 86 109/56 (73) Room Air 05/18/22 07:22 36.7 85 20 97 Room Air 05/18/22 07:21 36.7 81 18 110/62 (78) 97 Room Air Labs Laboratory Tests 05/18/22 06:30: White Blood Count 7.8, Red Blood Count 4.24, Hemoglobin 12.9, Hematocrit 38, Mean Corpuscular Volume 90, Mean Corpuscular Hemoglobin 30, Mean Corpuscular Hemoglobin Concent 34, Red Cell Distribution Width 14.5, Platelet Count 266, Mean Platelet Volume 9.5, Immature Granulocyte % (Auto) 2, Neutrophils (%) (Auto) 62, Lymphocytes (%) (Auto) 24, Monocytes (%) (Auto) 12, Eosinophils (%) (Auto) 1, Basophils (%) (Auto) 0, Neutrophils # (Auto) 4.8, Lymphocytes # (Auto) 1.9, Monocytes # (Auto) 0.9, Eosinophils # (Auto) 0.1, Basophils # (Auto) 0.0, Immature Granulocyte # (Auto) 0.1, Glucose Level 80 05/18/22 11:01: Glucometer 71 05/18/22 12:44: Glucometer 69L 05/18/22 13:51: Glucometer 84 05/18/22 14:53: Glucometer 91 05/18/22 16:04: Glucometer 81 05/18/22 17:53: Glucometer 79 05/18/22 19:11: Glucometer 100 05/18/22 20:18: HELENE VOSS MD 05/18/22 [id number]: Supervisory-Addendum Brief Supervisory Addendum Verification and Attestation of Medical Student E/M Service A medical student documented this service in my presence. I reviewed and verified all information documented by the medical student and made modifications to such information, when appropriate. I personally performed the procedure and medical decision making. Helene Voss, May 18, 2022,21:42 DANA HERNANDEZ May 18, 2022 20:52 HELENE VOSS MD May 18, 2022 21:43
[2022-05-18] MEDS ORDERED: IBUPROFEN 600 MG (MOTRIN) TAB PO ONE (21:23)
[2022-05-18] MEDS ORDERED: OXYTOCIN PRE-MIX DRIP 0 ML IV ONE (21:23)
[2022-05-18] MEDS: DOCUSATE SODIUM 100 MG (COLACE) CAP PO SCH (23:23)
[2022-05-19 03:12] VITALS: BP 98/50
[2022-05-19] MEDS: IBUPROFEN 600 MG (MOTRIN) TAB PO PRN ×4 (03:12→21:07)
[2022-05-19 05:55] LABS: BASOPHILS % (AUTO) 0 % (0-10); EOSINOPHILS # (AUTO) 0.1 10^3/uL (0.0-0.3); EOSINOPHILS % (AUTO) 1 % (0-10); HEMATOCRIT 34 % (35-52); HEMOGLOBIN 11.4 g/dL (11.5-16.0); LYMPHOCYTES # (AUTO) 2.5 10^3/uL (1.0-4.0); LYMPHOCYTES % (AUTO) 21 % (12-44); MEAN CORPUSCULAR HEMOGLOBIN 30 pg (25-34); MEAN CORPUSCULAR HGB CONC 34 g/dL (32-36); MEAN CORPUSCULAR VOLUME 90 fL (80-99); MEAN PLATELET VOLUME 9.6 fL (9.0-12.2); MONOCYTES # (AUTO) 1.2 10^3/uL (0.0-1.0); MONOCYTES % (AUTO) 11 % (0-12); NEUTROPHILS # (AUTO) 7.6 10^3/uL (1.8-7.8); NEUTROPHILS % (AUTO) 66 % (42-75); PLATELET COUNT 238 10^3/uL (130-400); WHITE BLOOD COUNT 11.4 10^3/uL (4.3-11.0)
[2022-05-19 08:21] VITALS: BP 114/59
[2022-05-19] MEDS: DOCUSATE SODIUM 100 MG (COLACE) CAP PO SCH ×2 (08:21→21:06)
[2022-05-19 12:00] VITALS: BP 101/51
--- NOTE | 2022-05-19 14:35 | Anesthesia-Regional Post-Op ---
Regional Patient Condition Mental Status: Alert, Oriented x3 Circulation: Same as Pre-Op Headache: Absent Sensation: Full Recovery Motor Block: Absent Post Op Complications Complications None Follow Up Care/Instructions Patient Instructions None needed. Anesthesia/Patient Condition Patient is doing well, no complaints, stable vital signs, no apparent adverse anesthesia problems. No complications reported per nursing. JOSUE MENDEZ DO May 19, 2022 14:34
[2022-05-19 16:00] VITALS: BP 112/57
--- NOTE | 2022-05-19 17:05 | Postpartum Progress Note ---
Note Note Day # 1 Subjective: Patient is without complaints. Ambulating, voiding. Tolerating a regular diet without nausea or vomiting. Normal lochia. Pain is well controlled with oral pain medications. Breast/Bottle feeding. Objective: Physical Exam: General - Alert and oriented, no apparent distress Abdomen - Soft, appropriately tender to palpation, non-distended, fundus firm at umbilicus Extremities - no edema, negative Bennie's bilaterally Assessment: 31 yo G4 now P4 post- day # 1, status post uncomplicated vaginal delivery. Recovering well, hemodynamically stable GDM Asymptomatic Anemia of acute blood loss Plan: Routine care. Encourage breast feeding and pumping, consultation placed Encourage ambulation. Blood sugars well controlled, D/c Metformin Plan for discharge tomorrow with 6 week f.u with [place] Vitals - Labs Vital Signs - I&O Vital Signs Date Time Temp Pulse Resp B/P (MAP) Pulse Ox O2 Delivery O2 Flow Rate FiO2 05/19/22 16:00 36.4 88 16 112/57 (75) 99 Room Air 05/19/22 12:00 36.3 74 18 101/51 (68) 97 Room Air 05/19/22 08:21 36.4 81 18 114/59 (77) 99 Room Air 05/19/22 03:12 36.8 79 18 98/50 (66) 96 Room Air 05/18/22 23:11 36.6 86 18 103/58 (73) 96 05/18/22 22:59 81 98/53 (68) 05/18/22 21:24 74 20 108/59 (75) 97 05/18/22 21:15 73 107/55 (72) 05/18/22 21:00 81 106/56 (73) 05/18/22 20:50 78 102/55 (71) 05/18/22 20:46 77 97/54 (68) 05/18/22 20:31 93 109/57 (74) 05/18/22 20:17 88 122/61 (81) 05/18/22 20:02 80 116/57 (76) 05/18/22 19:48 79 101/50 (67) 05/18/22 19:33 82 98/52 (67) 05/18/22 19:17 36.9 84 20 116/60 (78) Room Air 05/18/22 19:01 90 104/55 (71) Room Air 05/18/22 18:48 82 108/58 (75) Room Air 05/18/22 18:32 83 112/55 (74) Room Air 05/18/22 18:16 36.8 77 106/51 (69) Room Air 05/18/22 18:02 78 111/57 (75) Room Air 05/18/22 17:46 78 112/60 (77) Room Air 05/18/22 17:31 75 107/55 (72) Room Air 05/18/22 17:17 82 108/56 (73) Room Air I & O 05/19/22 07:00 Intake Total 2488 ml Output Total 475 ml Balance 2013 ml Labs Laboratory Tests 05/18/22 17:53: Glucometer 79 05/18/22 19:11: Glucometer 100 05/18/22 20:18: Glucometer 98 05/19/22 05:21: White Blood Count 11.4H, Red Blood Count 3.75L, Hemoglobin 11.4L, Hematocrit 34L , Mean Corpuscular Volume 90, Mean Corpuscular Hemoglobin 30, Mean Corpuscular Hemoglobin Concent 34, Red Cell Distribution Width 14.4, Platelet Count 238, Mean Platelet Volume 9.6, Immature Granulocyte % (Auto) 1, Neutrophils (%) (Auto) 66, Lymphocytes (%) (Auto) 21, Monocytes (%) (Auto) 11, Eosinophils (%) (Auto) 1, Basophils (%) (Auto) 0, Neutrophils # (Auto) 7.6, Lymphocytes # (Auto) 2.5, Monocytes # (Auto) 1.2H, Eosinophils # (Auto) 0.1, Basophils # (Auto) 0.0, Immature Granulocyte # (Auto) 0.1, Glucose Level 71 EVELIA BROWN MD May 19, 2022 17:05
[2022-05-19 21:07] VITALS: BP 107/54
[2022-05-20 02:55] VITALS: BP 112/61
[2022-05-20] MEDS: IBUPROFEN 600 MG (MOTRIN) TAB PO PRN ×2 (02:55→08:19)
[2022-05-20 08:19] VITALS: BP 108/58
[2022-05-20] MEDS: DOCUSATE SODIUM 100 MG (COLACE) CAP PO SCH (08:19)
--- NOTE | 2022-05-20 09:21 | Discharge Summary ---
Diagnosis/Chief Complaint Date of Admission May 18, 2022 at 06:05 Date of Discharge 05/20/2022 Admission Diagnosis Admission Diagnosis Third Trimester 38 week gestation GDM on oral medications GBS + Discharge Diagnosis Uncomplicated Asymptomatic anemia of acute blood loss Discharge Summary-Simple/Stand Procedures AROM Discharge Physical Examination Allergies: Coded Allergies: No Known Drug Allergies (Unverified , 09/26/13) Vitals & I&Os Vital Sign - Last 12Hours Date Time Temp Pulse Resp B/P (MAP) Pulse Ox O2 Delivery O2 Flow Rate FiO2 05/20/22 08:19 36.6 63 18 108/58 (75) 96 Room Air General Appearance: Alert, Oriented X3, No Acute Distress Respiratory: Clear to Auscultation, Normal Air Movement Cardiovascular: Regular Rate, No Murmurs Abdominal: Normal Bowel Sounds, Soft, No Tenderness, No Masses, Other (fundus firm and below umbilcus) Extremities: No Edema, No Tenderness/Swelling Psych/Mental Status: Mental Status NL, Mood NL Hospital Course See final discharge diagnosis. Discussion & Recommendations 31 yo G4 now P4 delivered @ term. Mother doing well and ok to d/c home Discharge Condition at discharge stable Instructions to patient/family Please see electronic discharge instructions given to patient. Discharge Medications Reviewed and agree with Discharge Medication list on patient's Discharge Instruction sheet EVELIA BROWN MD May 20, 2022 09:21
[2022-05-20] MEDS ORDERED: DOCU100C37 PO (09:27)
[2022-05-20] MEDS ORDERED: IBUP-844 PO (09:27)
--- NOTE | 2022-05-20 09:28 | Discharge Summary ---
Discharge Inst-[facility] Reconcile Patient Problems Problems Reviewed?: Yes Depart Medications New, Converted or Re-Newed RX: Transmitted to Pharmacy New Medications: Docusate Sodium (Docusate Sodium) 100 Mg Capsule 100 MG PO BID, #14 CAP Ibuprofen (Ibu) 600 Mg Tablet 600 MG PO Q6H PRN for PAIN-MILD (1-4), #30 TAB Follow Up/Instructions Goal/Follow Up: F.u [address] Benton Activity Activity: Activity as Tolerated Driving Instructions: You May Drive NO SMOKING: NO SMOKING Nothing Inside Vagina: No Douching, No [place], No Tampons Diet Discharge Diet: No Restrictions Symptoms to Report to : Bleeding Excessive, Fever Over 101 Degrees F, Shortness of Breath Copies To 1: NAV BENTON MD, HOLLY R MD May 20, 2022 09:28
[2022-05-20 11:00] VITALS: BP 108/58
--- NOTE | 2022-05-21 10:55 | Physician Query Clarification ---
PQ-Further Specificity Admission/Discharge Admission Date: May 18, 2022 at 06:05 Discharge Date: May 20, 2022 at 11:00 Dr. Benton, The medical record reflects the following clinical scenario: History/Risk Factors: Gestational diabetes, GBS+ Clinical Findings: Hgb/Hct 12.9>11.4/38>34 Treatment: list no more than 2 Question: Can you further specify if asymptomatic anemia of acute blood loss was treated and/or monitored. per the clinical indicators above? Please document a response in the Progress Notes or Discharge Summary. 1. Yes, asymptomatic anemia of acute blood loss was treated and/or monitored 2. No, asymptomatic anemia of acute blood loss was not treated and/or monitored 3. Other, with explanation of the clinical findings. 4. Clinically undetermined, no explanation for the clinical findings. PHYSICIAN RESPONSE Can you specify per above: Other, explanation/clinical finding Explanation/Clinical Findings Anemia occurred after I was no longer caring for patient, question should go to Dr. Trotter. In responding to this query, please exercise your independent professional judgment. The purpose of this communication is to more accurately reflect the complexity of your patients condition. The fact that a question is asked does not imply that any particular answer is desired or expected. Thank you for your timely response to this clarification. Requestors name: Bernardo THIS PHYSICIAN QUERY FORM IS A PERMANENT PART OF THE MEDICAL RECORD BERNARDO BERNAL May 21, 2022 10:55 NAV BENTON MD May 25, 2022 07:38
--- NOTE | 2022-05-26 14:56 | Physician Query Clarification ---
PQ-Further Specificity Admission/Discharge Admission Date: May 18, 2022 at 06:05 Discharge Date: May 20, 2022 at 11:00 The medical record reflects the following clinical scenario: History/Risk Factors: Gestational diabetes, GBS+ Clinical Findings: Hgb/HCT 12.9>11.4 - 38>34 Treatment: Question: Can you further specify if asymptomatic anemia of acute blood loss was treated and/or monitored per the clinical indicators above? Please document a response in the Progress Notes or Discharge Summary. 1. Yes, asymptomatic anemia of acute blood loss was treated and/or monitored 2. No, asymptomatic anemia of acute blood loss was treated and/or monitored 3. Other, with explanation of the clinical findings. 4. Clinically undetermined, no explanation for the clinical findings. PHYSICIAN RESPONSE Can you specify per above: 1 Explanation/Clinical Findings Yes we always monitor anemia post In responding to this query, please exercise your independent professional judgment. The purpose of this communication is to more accurately reflect the complexity of your patients condition. The fact that a question is asked does not imply that any particular answer is desired or expected. Thank you for your timely response to this clarification. Requestors name: Charlee THIS PHYSICIAN QUERY FORM IS A PERMANENT PART OF THE MEDICAL RECORD SMITHA ZARAGOZA May 26, 2022 14:56 EVELIA BROWN MD Jun 01, 2022 06:17
== END 2022-05-20 11:00 | disposition home or self-care (01) | DRG 806 ==
LOC: LDRP 06:05
PROVIDERS: ADMIT Family Medicine; ATTEND Family Medicine
PROC: 10E0XZZ Delivery of Products of Conception, External Approach (ICD-10-PCS; principal; 2022-05-18)
PROC: 3E033VJ Introduction of Other Hormone into Peripheral Vein, Percutaneous Approach (ICD-10-PCS; 2022-05-18)
DX: O24.425 Gestational diabetes mellitus in childbirth, controlled by oral hypoglycemic drugs (principal); D62 Acute posthemorrhagic anemia; Z37.0 Single live birth; Z3A.38 38 weeks gestation of pregnancy; O99.824 Streptococcus B carrier state complicating childbirth; O71.89 Other specified obstetric trauma; O90.81 Anemia of the puerperium
CPT/HCPCS: 36415; 82947; 85025; 86780; 86850; 86900; 86901; 88307